=== PATIENT | male | born 1985 | race Caucasian/White ===

== ENCOUNTER 2019-03-15 18:55 | Emergency (ER) | payer OTHER ==
[2019-03-15 19:01] VITALS: BP 145/90; PULSE 98; RESP 18; TEMP 98
--- NOTE | 2019-03-15 19:30 | ED ---
Upper Extremity HPI - General Chief Complaint: Extremity Injury, Upper Stated Complaint: Shoulder/arm pain Time Seen by Provider: 03/15/19 19:10 Source: patient Mode of arrival: ambulatory Limitations: no limitations - History of Present Illness Initial Comments: Patient is a 34-year-old male presenting to the emergency Department with complaints of left shoulder pain 4 days. Patient denies any trauma or falls to the left shoulder. Patient states he does a lot of heavy lifting for his job and also repetitive motions. Patient states he is having a hard time lifting the arm and is having some radiation down to his left upper arm. Patient denies any neck pain, numbness and tingling, fever or chills. Patient denies any other complaints at this time. - Related Data Previous Rx's Medication Instructions Recorded Cephalexin [Keflex] 500 mg PO Q6HR #40 cap 05/17/16 HYDROcodone/APAP 5-325MG [Glenn 5] 1 each PO Q4HR PRN #20 tab 05/17/16 Allergies Allergy/AdvReac Type Severity Reaction Status Date / Time clarithromycin [From Biaxin] AdvReac Nausea & Verified 03/15/19 18:58 Vomiting Review of Systems ROS Statement: Those systems with pertinent positive or pertinent negative responses have been documented in the HPI. ROS Other: All systems not noted in ROS Statement are negative. Past Medical History Past Medical History: Thyroid Disorder History of Any Multi-Drug Resistant Organisms: None Reported Past Surgical History: Appendectomy Additional Past Surgical History / Comment(s): thyroid Past Psychological History: No Psychological Hx Reported Smoking Status: Current every day smoker Past Alcohol Use History: Rare Past Drug Use History: Marijuana General Exam - General Exam Comments Initial Comments: GENERAL: Well-appearing, well-nourished and in no acute distress. HEAD: Atraumatic, normocephalic. EYES: Pupils equal round and reactive to light, extraocular movements intact, sclera anicteric, conjunctiva are normal. ENT: TMs normal, nares patent, oropharynx clear without exudates. Moist mucous membranes. NECK: Normal range of motion, supple without lymphadenopathy or JVD. LUNGS: Breath sounds clear to auscultation bilaterally and equal. No wheezes rales or rhonchi. HEART: Regular rate and rhythm without murmurs, rubs or gallops. ABDOMEN: Soft, nontender, normoactive bowel sounds. No guarding, no rebound. No masses appreciated. : Deferred EXTREMITIES: Patient has pain with palpation of the left rotator cuff. Patient has decreased range of motion in all motions the left shoulder. Patient has positive empty can sign and pain with external resisted motion. Patient is neurovascular intact. NEUROLOGICAL: Cranial nerves II through XII grossly intact. Normal speech, normal gait. PSYCH: Normal mood, normal affect. SKIN: Warm, Dry, normal turgor, no rashes or lesions noted. Limitations: no limitations Course Vital Signs 03/15/19 18:58 Temperature 98 F Pulse Rate 98 Respiratory 18 Rate Blood Pressure 145/90 O2 Sat by Pulse 97 Oximetry Medical Decision Making - Medical Decision Making Patient is a 34-year-old male with complaints of left shoulder pain 4 days. Patient denies any trauma or falls to left shoulder but does a lot of heavy lifting for his job and repetitive motions. On exam patient has tenderness and weakness of the rotator cuff muscles. This is most likely inflammation of the rotator cuff muscles. It was discussed with patient to rest, use ice and Motrin for pain and inflammation. Patient is in agreement with this plan. Patient will also be given a sling for comfort to wear a few hours of the day. Patient will follow up with orthopedics in 2-3 weeks if symptoms continue. Patient will be discharged home. Return parameters were discussed with the patient he verbalized understanding. Disposition Clinical Impression: Rotator cuff impingement syndrome of left shoulder Disposition: HOME SELF-CARE Condition: Stable Instructions (If sedation given, give patient instructions): Shoulder Pain (ED) Additional Instructions: Please return to the Emergency Department if symptoms worsen or any other concerns. Is patient prescribed a controlled substance at d/c from ED?: No Referrals: None,Stated [Primary Care Provider] - 1-2 days Jl Marks MD [STAFF PHYSICIAN] - 1-2 days
== END 2019-03-15 20:33 | disposition home or self-care (01) ==
LOC: EC 18:55
DX: M75.42 Impingement syndrome of left shoulder (principal); F17.200 Nicotine dependence, unspecified, uncomplicated; Z88.1 Allergy status to other antibiotic agents
CPT/HCPCS: 99283

== ENCOUNTER → 2021-07-19 | Outpatient (CLI) | payer OTHER ==
--- NOTE | 2021-07-19 14:35 | XR ---
EXAMINATION TYPE: XR hand complete RT DATE OF EXAM: 07/19/2021 CLINICAL HISTORY: pain TECHNIQUE: Frontal, lateral and oblique images of the right wrist are obtained. COMPARISON: None. FINDINGS: There is no acute fracture/dislocation evident. The joint spaces appear within normal limits. The o verlying soft tissue appears unremarkable. IMPRESSION: There is no acute fracture or dislocation seen. ICD 10 NO FRACTURE, INITIAL EVALUATION
== END | disposition home or self-care (01) ==
LOC: RADXRMAIN 14:07
PROVIDERS: ATTEND Physician Assistant Medical
DX: M79.641 Pain in right hand (principal)

== ENCOUNTER 2021-10-14 11:40 | Day surgery (SDC) | payer OTHER ==
[2021-10-12 11:37] VITALS: BMI 34.9
[~2021-10-14 11:40] MED LIST: DEXAMETHASONE SOD PHOSPHATE 4 MG/ML 1 ML VIAL IV ONE; HYDROmorphone 0.5 MG/0.5 ML SYRINGE IVP PRN; LACTATED RINGERS 1,000 ML IV SCH; MIDAZOLAM 2 MG/2 ML VIAL IV PRN; ONDANSETRON 4 MG/2 ML VIAL IVP ONE; Pre Op ABX Message 1 EACH MISC MISCELLANE ONE; SCOPOLAMINE 1.5MG/72HR PATCH TRANSDERM ONE
[2021-10-14 12:40] VITALS: RESP 16
[2021-10-14] MEDS ORDERED: fentaNYL (PF) 50 MCG/ML 2 ML AMP ONE (13:39)
[2021-10-14] MEDS ORDERED: PROPOFOL 10 MG/ML 20 ML VIAL IV ONE (13:39)
[2021-10-14] MEDS ORDERED: MIDAZOLAM 2 MG/2 ML VIAL ONE (13:39)
[2021-10-14] MEDS ORDERED: LIDOCAINE 1% INJ 10MG/ML (20 ML MDV) ONE (13:39)
[2021-10-14] MEDS ORDERED: BUPIVACAINE (PF) 0.25% 30 ML VIAL SQ ONE ×2 (14:02→14:11)
[2021-10-14 14:35] VITALS: TEMP 97.2
[2021-10-14 15:32] VITALS: BP 107/72; PULSE 65
--- NOTE | 2021-11-10 12:38 | P.OP ---
Date of Procedure: 10/14/21 Procedure(s) Performed: PREOPERATIVE DIAGNOSES: 1. Right elbow cubital tunnel syndrome POSTOPERATIVE DIAGNOSES: 1. Right elbow cubital tunnel syndrome PROCEDURES PERFORMED: 1. Right elbow in-situ decompression of ulnar nerve at cubital tunnel ANESTHESIA: laboratory supervisor: Erika Melvin PA-C (assistance with: patient positioning, retraction, hemostasis, release, closure, dressing) COMPLICATIONS: None ESTIMATED BLOOD LOSS: Less than 10 cc TOURNIQUET: 20 minutes DISPOSITION: To post-anesthesia care unit INDICATIONS: Trae is a 36 year old male with a history of right cubital tunnel syndrome which has been confirmed with EMG/NCS testing. There has been signs and symptoms consistent with the diagnosis and mild motor involvement. The patient has not benefitted significantly from conservative treatment with immobilization and night bracing. I have discussed the option of cubital tunnel release. I have explained the details of this surgery thoroughly and also explained the potential risks and complications. These are inclusive of, but not limited to: bleeding, infection, scarring, discomfort, blood vessel and nerve damage, stiffness, weakness, need for further surgery, failure to relieve symptoms, persistence or worsening of problems, , and other risks. The patient agrees to proceed with surgery. The consent form has been signed. PROCEDURE: After appropriate consent was obtained, the patient was taken to the operating room and placed in the supine position. Sedation was initiated and prepping and draping were performed in the usual aseptic fashion with Hibiclens. A pneumotourniquet was used for the case. Time-out was called according to [facility] standards, confirming patient identity, side, procedure, and no antibiotics were administered, per protocol. Tourniquet was inflated after exsanguination of the right upper limb. Incision was created on the ulnar posterior aspect of the elbow, between the medial epicondyle and the olecranon. The incision length was approximately 7 cm. The incision was carried down through subcutaneous tissue using a dissecting scissor. Care was taken to identify and protect any visualized branches of the medial antebrachial cutaneous nerve. Hemostasis was maintained throughout the case using electrocautery. Dissection proceeded down to the ulnar nerve proximal to the medial epicondyle. The nerve was clearly identified and then followed into the cubital tunnel. The retinaculum of the cubital tunnel (Osbornes ligament) was divided sharply with a knife, proximal to distal. Compression of the nerve was noted in this location, with an hourglass shaped area of the ulnar nerve around the ligament. The fascia between the two heads of the flexor carpi ulnaris muscle was then incised under direct visualization. The motor branch of the ulnar nerve to the FCU was identified and protected. Final distal release of the flexor-pronator aponeurosis was performed using fine Metzenbaum scissors. Post release, subluxation of the nerve was assessed by flexing and extending the elbow with evaluation of whether the nerve subluxed out of the groove. This maneuver was also performed with various degrees of pronation and supination. The nerve remained stable and no subluxation was observed. Area was thoroughly irrigated with normal saline. Tourniquet was deflated and hemostasis was obtained using electrocautery. Closure using 3-0 Vicryl singleton tures in the subcutaneous tissue followed by 4-0 Monocryl running subcuticular stitch for the skin was performed. Steri-Strips were applied. Sterile dressing was applied and light compressive dressing using webril and BERNIE wrap. Pressure was held for 3 minutes over the incision site for additional hemostasis. Arm sling was applied. Patient tolerated the procedure well and taken to recovery room in stable condition. Sponge and needle counts were correct.
== END 2021-10-14 15:40 | disposition home or self-care (01) ==
LOC: OR 11:40
PROVIDERS: ATTEND Orthopaedic Surgery
DX: G56.21 Lesion of ulnar nerve, right upper limb (principal); Z97.3 Presence of spectacles and contact lenses; Z98.890 Other specified postprocedural states; Z72.0 Tobacco use; Z79.1 Long term (current) use of non-steroidal anti-inflammatories (NSAID); Z88.1 Allergy status to other antibiotic agents
CPT/HCPCS: 64718; J2250; J1100; J2405; J2001; J3010; J2704; J1170

== ENCOUNTER 2022-08-23 19:27 | Observation (INO) | payer OTHER ==
--- NOTE | 2022-08-23 19:39 | ED ---
Altered Mental Status HPI - General Stated Complaint: Altered Mental Time Seen by Provider: 08/23/22 19:28 Source: EMS Mode of arrival: EMS Limitations: altered mental status - History of Present Illness Initial Comments: This patient is a 37-year-old man who is brought to have evaluation for altered mental status. History is from EMS, they were called to the scene by family pollo mckenzie, who reported that the patient was behaving in a bizarre fashion. They note that on arrival he was staggering around the hospital they state he was swinging his arms around randomly. When I interview the patient, he is not able to expound on what was going on. He does recognize she is in a medical facility but is otherwise disoriented and confused. He does deny pain anywhere. He denies dyspnea. Patient denies drug use. MD Complaint: altered mental status Onset/Timin -: hour(s) Severity: moderate Consistency of Symptoms: unknown Associated Symptoms: denies other symptoms - Related Data Home Medications Medication Instructions Recorded Confirmed No Known Home Medications 08/23/22 08/23/22 Allergies Allergy/AdvReac Type Severity Reaction Status Date / Time clarithromycin [From Biaxin] Allergy Severe Body shut Verified 08/23/22 20:10 down Review of Systems ROS Statement: Those systems with pertinent positive or pertinent negative responses have been documented in the HPI. ROS Other: All systems not noted in ROS Statement are negative. Respiratory: Denies: cough Cardiovascular: Denies: chest pain Gastrointestinal: Denies: abdominal pain, vomiting Neurological: Denies: headache Past Medical History Past Medical History: Thyroid Disorder History of Any Multi-Drug Resistant Organisms: None Reported Past Surgical History: Appendectomy Additional Past Surgical History / Comment(s): Partial thyroidectomy. Past Anesthesia/Blood Transfusion Reactions: No Reported Reaction Past Psychological History: No Psychological Hx Reported Smoking Status: Current every day smoker Past Alcohol Use History: None Reported Additional Past Alcohol Use History / Comment(s): Has been smoking since 13 yrs of age, 1/2 ppd. Past Drug Use History: Marijuana Additional Drug Use History / Comment(s): Marijuana use daily. Aware no use 24 hrs prior to procedure. - Past Family History Father Family Medical History: Cancer Mother Family Medical History: Cancer General Exam General appearance: alert Head exam: Present: atraumatic, normocephalic Eye exam: Present: normal appearance, PERRL, EOMI, nystagmus. Absent: scleral icterus, conjunctival injection Pupils: Present: mydriatic ENT exam: Present: mucous membranes dry Neck exam: Present: full ROM. Absent: tenderness, meningismus Respiratory exam: Present: normal lung sounds bilaterally. Absent: respiratory distress, wheezes, rales, rhonchi, stridor Cardiovascular Exam: Present: regular rate, normal rhythm, normal heart sounds. Absent: systolic murmur, diastolic murmur, rubs, gallop GI/Abdominal exam: Present: soft. Absent: distended, tenderness, guarding, rebound, rigid, mass Extremities exam: Present: normal inspection, normal capillary refill Back exam: Present: normal inspection. Absent: CVA tenderness (R), CVA tenderness (L) Neurological exam: Present: alert, CN II-XII intact. Absent: oriented X3 (Patient is oriented to person and recognizes she is a medical facility.), motor sensory deficit Skin exam: Present: warm, dry, intact, normal color. Absent: rash Course Vital Signs 08/23/22 08/23/22 19:43 23:00 Temperature 99.1 F Pulse Rate 120 H 81 Respiratory 20 16 Rate Blood Pressure 139/106 126/96 O2 Sat by Pulse 98 93 L Oximetry Medical Decision Making - Lab Data Result diagrams: 08/23/22 19:35 08/23/22 19:35 Lab Results 08/23/22 08/23/22 08/23/22 Range/Units 19:35 19:35 19:35 WBC 7.5 (3.8-10.6) k/uL RBC 4.88 (4.30-5.90) m/uL Hgb 15.2 (13.0-17.5) gm/dL Hct 43.0 (39.0-53.0) % MCV 88.2 (80.0-100.0) fL MCH 31.2 (25.0-35.0) pg MCHC 35.4 (31.0-37.0) g/dL RDW 12.7 (11.5-15.5) % Plt Count 214 (150-450) k/uL MPV 8.6 Neutrophils % 54 % Lymphocytes % 32 % Monocytes % 5 % Eosinophils % 6 % Basophils % 0 % Neutrophils # 4.0 (1.3-7.7) k/uL Lymphocytes # 2.4 (1.0-4.8) k/uL Monocytes # 0.4 (0-1.0) k/uL Eosinophils # 0.5 (0-0.7) k/uL Basophils # 0.0 (0-0.2) k/uL PT 10.1 (9.0-12.0) sec INR 0.9 (<1.2) APTT 23.6 (22.0-30.0) sec Sodium (137-145) mmol/L Potassium (3.5-5.1) mmol/L Chloride (98-107) mmol/L Carbon Dioxide (22-30) mmol/L Anion Gap mmol/L BUN (9-20) mg/dL Creatinine (0.66-1.25) mg/dL Est GFR (CKD-EPI)AfAm (>60 ml/min/1.73 sqM) Est GFR (CKD-EPI)NonAf (>60 ml/min/1.73 sqM) Glucose (74-99) mg/dL POC Glucose (mg/dL) (70-110) mg/dL POC Glu Farmer [employer] ID Calcium (8.4-10.2) mg/dL Total Bilirubin (0.2-1.3) mg/dL AST (17-59) U/L ALT (4-49) U/L Alkaline Phosphatase (38-126) U/L Ammonia (<30) umol/L Troponin I (0.000-0.034) ng/mL Total Protein (6.3-8.2) g/dL Albumin (3.5-5.0) g/dL Urine Opiates Screen Not Detected (NotDetected) Ur Oxycodone Screen Not Detected (NotDetected) Urine Methadone Screen Not Detected (NotDetected) Ur Propoxyphene Screen Not Detected (NotDetected) Ur Barbiturates Screen Not Detected (NotDetected) U Tricyclic Antidepress Not Detected (NotDetected) Ur Phencyclidine Scrn Not Detected (NotDetected) Ur Amphetamines Screen Not Detected (NotDetected) U Methamphetamines Scrn Not Detected (NotDetected) U Benzodiazepines Scrn Detected H (NotDetected) Urine Cocaine Screen Detected H (NotDetected) U Marijuana (THC) Screen Detected H (NotDetected) Serum Alcohol mg/dL 08/23/22 08/23/22 08/23/22 Range/Units 19:35 19:35 19:35 WBC (3.8-10.6) k/uL RBC (4.30-5.90) m/uL Hgb (13.0-17.5) gm/dL Hct (39.0-53.0) % MCV (80.0-100.0) fL MCH (25.0-35.0) pg MCHC (31.0-37.0) g/dL RDW (11.5-15.5) % Plt Count (150-450) k/uL MPV Neutrophils % % Lymphocytes % % Monocytes % % Eosinophils % % Basophils % % Neutrophils # (1.3-7.7) k/uL Lymphocytes # (1.0-4.8) k/uL Monocytes # (0-1.0) k/uL Eosinophils # (0-0.7) k/uL Basophils # (0-0.2) k/uL PT (9.0-12.0) sec INR (<1.2) APTT (22.0-30.0) sec Sodium 140 (137-145) mmol/L Potassium 3.8 (3.5-5.1) mmol/L Chloride 107 (98-107) mmol/L Carbon Dioxide 22 (22-30) mmol/L Anion Gap 11 mmol/L BUN 7 L (9-20) mg/dL Creatinine 0.94 (0.66-1.25) mg/dL Est GFR (CKD-EPI)AfAm >90 (>60 ml/min/1.73 sqM) Est GFR (CKD-EPI)NonAf >90 (>60 ml/min/1.73 sqM) Glucose 116 H (74-99) mg/dL POC Glucose (mg/dL) (70-110) mg/dL POC Glu Farmer [employer] ID Calcium 9.7 (8.4-10.2) mg/dL Total Bilirubin 0.8 (0.2-1.3) mg/dL AST 19 (17-59) U/L ALT 15 (4-49) U/L Alkaline Phosphatase 59 (38-126) U/L Ammonia <9 (<30) umol/L Troponin I <0.012 (0.000-0.034) ng/mL Total Protein 7.4 (6.3-8.2) g/dL Albumin 4.6 (3.5-5.0) g/dL Urine Opiates Screen (NotDetected) Ur Oxycodone Screen (NotDetected) Urine Methadone Screen (NotDetected) Ur Propoxyphene Screen (NotDetected) Ur Barbiturates Screen (NotDetected) U Tricyclic Antidepress (NotDetected) Ur Phencyclidine Scrn (NotDetected) Ur Amphetamines Screen (NotDetected) U Methamphetamines Scrn (NotDetected) U Benzodiazepines Scrn (NotDetected) Urine Cocaine Screen (NotDetected) U Marijuana (THC) Screen (NotDetected) Serum Alcohol <10 mg/dL 08/23/22 Range/Units 19:40 WBC (3.8-10.6) k/uL RBC (4.30-5.90) m/uL Hgb (13.0-17.5) gm/dL Hct (39.0-53.0) % MCV (80.0-100.0) fL MCH (25.0-35.0) pg MCHC (31.0-37.0) g/dL RDW (11.5-15.5) % Plt Count (150-450) k/uL MPV Neutrophils % % Lymphocytes % % Monocytes % % Eosinophils % % Basophils % % Neutrophils # (1.3-7.7) k/uL Lymphocytes # (1.0-4.8) k/uL Monocytes # (0-1.0) k/uL Eosinophils # (0-0.7) k/uL Basophils # (0-0.2) k/uL PT (9.0-12.0) sec INR (<1.2) APTT (22.0-30.0) sec Sodium (137-145) mmol/L Potassium (3.5-5.1) mmol/L Chloride (98-107) mmol/L Carbon Dioxide (22-30) mmol/L Anion Gap mmol/L BUN (9-20) mg/dL Creatinine (0.66-1.25) mg/dL Est GFR (CKD-EPI)AfAm (>60 ml/min/1.73 sqM) Est GFR (CKD-EPI)NonAf (>60 ml/min/1.73 sqM) Glucose (74-99) mg/dL POC Glucose (mg/dL) 113 H (70-110) mg/dL POC Glu Farmer Cash Grain ID Mil Morton Calcium (8.4-10.2) mg/dL Total Bilirubin (0.2-1.3) mg/dL AST (17-59) U/L ALT (4-49) U/L Alkaline Phosphatase (38-126) U/L Ammonia (<30) umol/L Troponin I (0.000-0.034) ng/mL Total Protein (6.3-8.2) g/dL Albumin (3.5-5.0) g/dL Urine Opiates Screen (NotDetected) Ur Oxycodone Screen (NotDetected) Urine Methadone Screen (NotDetected) Ur Propoxyphene Screen (NotDetected) Ur Barbiturates Screen (NotDetected) U Tricyclic Antidepress (NotDetected) Ur Phencyclidine Scrn (NotDetected) Ur Amphetamines Screen (NotDetected) U Methamphetamines Scrn (NotDetected) U Benzodiazepines Scrn (NotDetected) Urine Cocaine Screen (NotDetected) U Marijuana (THC) Screen (NotDetected) Serum Alcohol mg/dL Disposition Clinical Impression: Altered mental status, Cocaine intoxication delirium Disposition: ADMITTED IP TO THIS HOSP Condition: Fair Instructions (If sedation given, give patient instructions): Altered Mental Status (ED) Is patient prescribed a controlled substance at d/c from ED?: No Referrals: Mann Drake MD [REFERRING] - 1-2 days
[2022-08-23 19:42] LABS: Glucose,Whole Blood 113 mg/dL (70-110)
[2022-08-23 19:53] LABS: Basophils % (A) 0 %; Eosinophils # (A) 0.5 k/uL (0-0.7); Eosinophils % (A) 6 %; HGB 15.2 gm/dL (13.0-17.5); Lymphocytes # (A) 2.4 k/uL (1.0-4.8); Lymphocytes % (A) 32 %; MCH 31.2 pg (25.0-35.0); MCHC 35.4 g/dL (31.0-37.0); MCV 88.2 fL (80.0-100.0); Mean Platelet Volume 8.6; Monocytes # (A) 0.4 k/uL (0-1.0); Monocytes % (A) 5 %; Neutrophils % (A) 54 %; Platelet Count 214 k/uL (150-450); RBC 4.88 m/uL (4.30-5.90); RDW 12.7 % (11.5-15.5); WBC 7.5 k/uL (3.8-10.6)
[2022-08-23] MEDS ORDERED: LORazepam 2 MG/ML INJ IV STA ×2 (20:00→22:04)
[2022-08-23] MEDS ORDERED: SODIUM CHLORIDE 0.9% 1,000 ML IV ONE (20:00)
[2022-08-23 20:01] LABS: INR 0.9 (<1.2); Partial Thromboplastin Time 23.6 sec (22.0-30.0); Prothrombin Time 10.1 sec (9.0-12.0)
[2022-08-23 20:10] LABS: ALT 15 U/L (4-49); AST 19 U/L (17-59); African American GFR (CKD) >90 (>60 ml/min/1.73 sqM); Albumin 4.6 g/dL (3.5-5.0); Alcohol <10 mg/dL; Alkaline Phosphatase 59 U/L (38-126); Anion Gap 11 mmol/L; Blood Urea Nitrogen 7 mg/dL (9-20); Calcium 9.7 mg/dL (8.4-10.2); Carbon Dioxide 22 mmol/L (22-30); Chloride 107 mmol/L (98-107); Glucose 116 mg/dL (74-99); Non-African American GFR(CKD) >90 (>60 ml/min/1.73 sqM); Potassium 3.8 mmol/L (3.5-5.1); Sodium 140 mmol/L (137-145); Total Bilirubin 0.8 mg/dL (0.2-1.3); Total Protein 7.4 g/dL (6.3-8.2)
--- NOTE | 2022-08-23 20:58 | XR ---
EXAMINATION TYPE: XR chest 1V portable DATE OF EXAM: 08/23/2022 8:28 PM COMPARISON: None TECHNIQUE: XR chest 1V portable Portable AP radiograph of the chest. CLINICAL INDICATION:Male, 37 years old with history of altered mental status; FINDINGS: Lungs/Pleura: There is no evidence of pleural effusion, focal consolidation, or pneumothorax. Pulmonary vascularity: Unremarkable. Heart/mediastinum: Cardiomediastinal silhouette is unremarkable. Musculoskeletal: No acute osseous pathology. IMPRESSION: No acute cardiopulmonary disease/process.
[2022-08-23 21:48] LABS: Amphetamine Screen,Urine Not Detected (NotDetected); Barbiturate Screen,Urine Not Detected (NotDetected); Benzodiazepines Screen,Urine Detected (NotDetected); Cocaine Screen,Urine Detected (NotDetected); Methadone Screen, Urine Not Detected (NotDetected); Opiate Screen,Urine Not Detected (NotDetected); Oxycodone Screen, Urine Not Detected (NotDetected); Phencyclidine Screen,Urine Not Detected (NotDetected); Tricyclic Antidepressant,Urine Not Detected (NotDetected); Urn Cannabinoid Scrn Detected (NotDetected)
--- NOTE | 2022-08-23 23:05 | CT ---
EXAMINATION TYPE: CT brain wo con DATE OF EXAM: 08/23/2022 COMPARISON: None HISTORY: AMS CT DLP: 1247.4 mGycm Automated exposure control for dose reduction was used. Images obtained of the brain without contrast. Ventricles and sulci appear normal. There is no mass effect or midline shift. No sign of intracranial hemorrhage. The calvarium is intact. No evidence of cerebral edema. There is complete opacification of the right maxillary sinus. There is mucosal thickening left maxillary sinus and also the ethmoid s inuses. IMPRESSION: Negative CT scan of the brain. Maxillary and ethmoid sinusitis.
[2022-08-24] MEDS ORDERED: MAG HYDROX/AL HYDROX/SIMETH 30 ML CUP PO PRN (00:41)
[2022-08-24] MEDS ORDERED: NALOXONE 0.4 MG/ML 1 ML VIAL IV PRN (00:41)
[2022-08-24] MEDS ORDERED: LORazepam 2 MG/ML INJ IV PRN (01:54)
--- NOTE | 2022-08-24 02:02 | P.HPIM ---
History of Present Illness H&P Date: 08/24/22 Chief Complaint: bizarre behavior 37 year old male with history of thyroid disease not otherwise specified patient brought in by EMS , as family noted bizarre behavior. patient is heavily sedated, report obtained from ED doc. patient was disoriented upon arrival , however, family reports that he was aggressive with his behavior earlier at home swinging his arms around and walking in an unsteady way. no family present at time of my evaluation. patient was heavily sedated in the ED with ativan due to agitation. blood work over all unremarkable , slightly elevated liver enzymes. urine drug screen positive for Cocaine, benzo, marijunana Review of Systems ROS unobtainable: due to mental status Past Medical History Past Medical History: Thyroid Disorder History of Any Multi-Drug Resistant Organisms: None Reported Past Surgical History: Appendectomy Additional Past Surgical History / Comment(s): Partial thyroidectomy. Past Anesthesia/Blood Transfusion Reactions: No Reported Reaction Past Psychological History: No Psychological Hx Reported Smoking Status: Current every day smoker Past Alcohol Use History: None Reported Additional Past Alcohol Use History / Comment(s): Has been smoking since 13 yrs of age, 1/2 ppd. Past Drug Use History: Marijuana Additional Drug Use History / Comment(s): Marijuana use daily. Aware no use 24 hrs prior to procedure. - Past Family History Father Family Medical History: Cancer Mother Family Medical History: Cancer Medications and Allergies Home Medications Medication Instructions Recorded Confirmed Type No Known Home Medications 08/23/22 08/23/22 History Allergies Allergy/AdvReac Type Severity Reaction Status Date / Time clarithromycin [From Biaxin] Allergy Severe Body shut Verified 08/23/22 20:10 down Physical Exam Vitals: Vital Signs Temp Pulse Resp BP Pulse Ox 08/23/22 23:00 81 16 126/96 93 L 08/23/22 19:43 99.1 F 120 H 20 139/106 98 Intake and Output 08/23/22 08/23/22 08/24/22 14:59 22:59 06:59 Other: Weight 108.862 kg Constitutional: No acute distress , heavily sedated, arousable but disoriented and confused Eyes: Anicteric sclerae, moist conjunctiva, Pupils equal round reactive to light ENMT: NC/AT , resists opening his mouth Neck: Supple, no masses, or JVD No carotid bruits No thyromegaly Lungs: good breath sounds bilaterally with diffuse coarse rhales Clear to percussion Normal respiratory effort, no accessory muscle use Cardiovascular: Heart regular in rate and rhythm, No murmurs, gallops, or rubs No peripheral edema Abdominal: Soft Nontender, no guarding, rebound or rigidity Abdomen moving with respiration Normoactive bowel sounds No hepatomegaly, No splenomegaly No palpable mass No abdominal wall hernia noted Skin: Normal temperature, tone, texture, turgor No induration No subcutaneous nodules No rash, lesions No ulcers Extremities: No digital cyanosis No clubbing Pedal pulses intact and symmetrical Radial pulses intact and symmetrical No calf tenderness Psychiatric: heavily sedated, arousable but confused and disoriented Neuro unable to perform proper neuro exam , patient does not follow commands Lymphatics: no palpable cervical or supraclavicular lymph nodes Results CBC & Chem 7: 08/23/22 19:35 08/23/22 19:35 Labs: Abnormal Lab Results - Last 24 Hours (Table) 08/23/22 08/23/22 08/23/22 Range/Units 19:35 19:35 19:40 BUN 7 L (9-20) mg/dL Glucose 116 H (74-99) mg/dL POC Glucose (mg/dL) 113 H (70-110) mg/dL U Benzodiazepines Scrn Detected H (NotDetected) Urine Cocaine Screen Detected H (NotDetected) U Marijuana (THC) Screen Detected H (NotDetected) Assessment and Plan Assessment: bizarre behavior , possible polysubstance abuse cocaine, benzo and marijuana supportive care Ativan PRN for agitation monitor vital signs supplemental oxygen as needed fall and seizure precautions IVF hydration with normal saline labs reviewed and overall unremarkable , slight liver enzymes elevation repeat labs in AM Brain CT no acute pathology CXR no acute pathology Full code GI PPX famotidine DVT PPX scd
[2022-08-24] MEDS: SODIUM CHLORIDE 0.9% 1,000 ML IV SCH ×2 (03:18→09:40)
[2022-08-24 04:04] VITALS: RESP 18
[2022-08-24 08:02] VITALS: BP 144/79; PULSE 118; TEMP 99
[2022-08-24] MEDS ORDERED: AMOXIC-POT CLAV 875-125MG 1 EACH TAB PO SCH (09:00)
[2022-08-24] MEDS ORDERED: FAMOTIDINE 20 MG TAB PO SCH (09:00)
--- NOTE | 2022-08-24 10:31 | P.DS ---
Providers Date of admission: 08/24/22 00:41 Expected date of discharge: 08/24/22 Attending physician: Sim Landis MD Primary care physician: Stated None Hospital Course: Discharge Diagnosis: Polysubstance abuse Bizarre agitated behavior secondary to polysubstance abuse with cocaine, benzodiazepines, and marijuana Nicotine dependence Ethmoid and maxillary sinusitis Hospital Course: Patient is a very pleasant 37-year-old male presented to the emergency department with family for bizarre behavior concerns for sedation/intoxication. Patient underwent full evaluation in the emergency department. CBC, coags, and CMP were all unremarkable. CT had completed negative for acute intercranial process revealing mucosal thickening of left maxillary and ethmoid sinuses. EKG showing normal sinus rhythm at 83 bpm with no noted T-wave or ST abnormalities showing no signs of acute ischemia. Urine drug screen was completed positive for benzodiazepines, cocaine, and marijuana. Upon admission patient was reported to be heavily sedated secondary to agitation presenting in ED. Patient admitted to observation divided with IV fluid hydration and monitored overnight. Patient now alert and oriented to person, time, place, and situation. Patient reports he screwed up" did a lot of drugs". Patient's at bedside confirming patient back at baseline mentation. Patient is medically stable at this time and stable for discharge home. Patient was started on Augmentin for treatment of these might and maxillary sinusitis. Patient seen and examined at bedside. Vital signs reviewed and stable. General: Nontoxic, no distress and appears stated age. Disheveled appearance. Obese Derm: Skin warm and dry, normal coloration for ethnicity. Head: Atraumatic, normocephalic and symmetric. Eyes: EOMs intact, no lid lag, and anicteric sclera Mouth: no lip lesions, mucus membranes moist Cardiovascular: regular rate and rhythm with normal S1S2, no murmur, positive posterior tibial pulses bilaterally, and cap refill < 2 seconds. Lungs: Respirations even, regular, and unlabored on room air. Lungs CTA bilaterally, no rhonchi, no rales, no wheezing, and no accessory muscle usage. Abdominal: soft, nontender to palpation, no guarding, no appreciable organomegaly Ext: ROM intact. No gross muscle atrophy, no edema, no contractures Neuro: Speech clear, face symmetrical and CN II-XII grossly intact with no noted focal neuro deficits Psych: Alert and oriented to person, place, time, and situation. Appropriate and pleasant affect. A total of 32 minutes of time were spent preparing this complex discharge summary. Pt was discharged on 08/24/22 at 10:31 AM Patient Condition at Discharge: Stable Plan - Discharge Summary New Discharge Prescriptions: New Amoxic-Pot Clav 875-125Mg [Augmentin 875-125] 1 each PO Q12HR 10 Days #17 tab Discharge Medication List Amoxic-Pot Clav 875-125Mg [Augmentin 875-125] 1 each PO Q12HR 10 Days #17 tab 08/24/22 [Rx] Follow up Appointment(s)/Referral(s): Mann Drake MD [REFERRING] - 1-2 days (PLEASE CALL AND SCHEDULE APPOINTMENT.) Patient Instructions/Handouts: Amoxicillin/Clavulanate Potassium (By mouth), How to Stop Smoking (DC), Sinusitis (GEN), Heart Healthy Diet (DC), Cocaine Abuse (DC), Polysubstance Abuse (ED) Activity/Diet/Wound Care/Special Instructions: Activity: As tolerated. Take breaks as needed. Diet: Heart healthy and carb consistent diet. Avoid salts, or foods with hidden salts such as canned or boxed foods and frozen dinners. Extra salt makes your heart work harder and traps the fluid in your body for longer. Special Instructions: Highly recommend no further drug use. Have a happy and healthy new year! Thank you for allowing us to participate in your care, it was truly a pleasure having you for our patient!!! Discharge Disposition: HOME SELF-CARE
== END 2022-08-24 10:57 | disposition home or self-care (01) ==
LOC: EC 19:27 → 6NMEDSUR 08-24 00:41
PROVIDERS: ADMIT Internal Medicine; ATTEND Internal Medicine
DX: F14.129 Cocaine abuse with intoxication, unspecified (principal); F13.10 Sedative, hypnotic or anxiolytic abuse, uncomplicated; F12.10 Cannabis abuse, uncomplicated; R45.1 Restlessness and agitation; J32.0 Chronic maxillary sinusitis; J32.2 Chronic ethmoidal sinusitis; F17.200 Nicotine dependence, unspecified, uncomplicated; Z88.1 Allergy status to other antibiotic agents
CPT/HCPCS: 96376 ×2; 96361; 96374; 99285; 36415; 94760; 93005; 80053; 82140; 84484; 85025; 85610; 85730; 80306; 71045; 70450; G0378; G0480; J2060 ×2; 80320